=== PATIENT | female | born 1940 | race Two or more races ===

== ENCOUNTER 2019-07-29 11:15 | Emergency (ER) | payer MEDICAID, OTHER ==
[~2019-07-29] VITALS: Ht 152.4 cm; Wt 53.2 kg
[2019-07-29 11:30] VITALS: BP 157/84
== END 2019-07-29 13:57 | disposition left against medical advice (07) ==
LOC: ER 11:15
DX: H57.12 Ocular pain, left eye (principal); Z53.21 Procedure and treatment not carried out due to patient leaving prior to being seen by health care provider